=== PATIENT | male | born 2000 | race Caucasian/White ===

== ENCOUNTER 2021-07-01 02:34 | Emergency (ER) | payer OTHER ==
[~2021-07-01] VITALS: Ht 180.3 cm; Wt 78.4 kg
[2021-07-01] MEDS ORDERED: CEFU50TA PO (02:48)
[2021-07-01 09:09] VITALS: BP 142/69
== END 2021-07-01 09:12 | disposition home or self-care (01) ==
LOC: M ED 02:34
DX: K42.9 Umbilical hernia without obstruction or gangrene (principal); Z88.0 Allergy status to penicillin

== ENCOUNTER → 2021-09-12 | Outpatient (CLI) | payer OTHER ==
[~2021-09-12] MED LIST: CEFU50TA PO; IBUP200C25 PO; LEVOTAB10 PO
== END ==
LOC: M LABSMTC 09:50
PROVIDERS: ATTEND Anesthesiology
DX: Z01.812 Encounter for preprocedural laboratory examination (principal); Z20.822 Contact with and (suspected) exposure to COVID-19

== ENCOUNTER 2021-09-17 09:31 | Day surgery (SDC) | payer OTHER ==
[~2021-09-17] VITALS: Ht 177.8 cm; Wt 80.2 kg
[~2021-09-17 09:31] MED LIST changes: +ceFAZolin SOD 2 GM in IV 1 EA IV ONE
[2021-09-17] MEDS ORDERED: LR 1,000 ML IV SCH ×2 (10:10→11:55)
[2021-09-17] MEDS ORDERED: fentaNYL 100 MCG/2 ML INJECTION As Ordered ONE (10:12)
[2021-09-17] MEDS ORDERED: MIDAZOLAM INJ 2MG/2ML VIAL (J2250 PER 1MG) As Ordered ONE (10:12)
[2021-09-17] MEDS ORDERED: BUPIVACAINE/EPIN 0.25% 30 ML VIAL As Ordered ONE (10:42)
[2021-09-17] MEDS ORDERED: BUPIVACAINE LIPOSOME/PF 1.3% 20ML VIAL (13.3MG/ML)(EXPAREL) As Ordered ONE (10:42)
[2021-09-17] MEDS ORDERED: BUPIVACAINE HCL 0.25% 10ML VIAL As Ordered ONE (10:42)
[2021-09-17] MEDS ORDERED: ONDANSETRON 4MG 2ML VIAL As Ordered ONE (11:11)
[2021-09-17] MEDS ORDERED: dexameTHASONE 4 MG/ML 1ML VIAL (J1100 PER 1MG) As Ordered ONE (11:11)
[2021-09-17] MEDS ORDERED: LIDOCAINE 2% 100MG/5ML SDV (FOR ANES.) As Ordered ONE (11:12)
[2021-09-17] MEDS ORDERED: KETOROLAC 60MG 2ML VIAL As Ordered ONE (11:12)
[2021-09-17] MEDS ORDERED: ROCURONIUM BROMIDE 50 MG/5 ML VIAL As Ordered ONE (11:12)
[2021-09-17] MEDS ORDERED: propofoL 200 MG/20 ML VIAL As Ordered ONE (11:12)
[2021-09-17] MEDS ORDERED: ACETAMINOPHEN 1000MG 100ML IV BTL (OFIRMEV) (J0131 PER 10MG) As Ordered ONE (11:13)
[2021-09-17] MEDS ORDERED: SUGAMMADEX SODIUM 500 MG/5 ML VIAL (BRIDION) As Ordered ONE (11:25)
[2021-09-17] MEDS ORDERED: fentaNYL 100 MCG/2 ML INJECTION IV PRN (11:55)
[2021-09-17] MEDS ORDERED: oxyCODONE 5MG TAB PO PRN (11:55)
[2021-09-17] MEDS ORDERED: ONDANSETRON 4MG 2ML VIAL IV PRN (11:55)
[2021-09-17] MEDS ORDERED: traMADol 50 MG TAB PO PRN (13:10)
[2021-09-17 13:25] VITALS: BP 125/74
== END 2021-09-17 13:44 | disposition home or self-care (01) ==
LOC: M SDC 09:31
PROVIDERS: ATTEND Surgery
DX: K42.9 Umbilical hernia without obstruction or gangrene (principal); K21.9 Gastro-esophageal reflux disease without esophagitis; Z88.0 Allergy status to penicillin; F12.10 Cannabis abuse, uncomplicated; Z79.899 Other long term (current) drug therapy
CPT/HCPCS: 49585; 88302; C9290; J0131; J0690; J1100; J1885; J2250; J2405; J3010

== ENCOUNTER → 2022-11-26 | Outpatient (REF) | payer OTHER ==
[~2022-11-26] MED LIST changes: -ceFAZolin SOD 2 GM in IV 1 EA IV ONE
== END ==
LOC: M LAB REF 12:26
PROVIDERS: ATTEND Physician Assistant
DX: J02.9 Acute pharyngitis, unspecified (principal)

== ENCOUNTER → 2025-02-03 | Outpatient (CLI) | payer OTHER ==
[~2025-02-03] MED LIST changes: +E-Z-GAS II EFFERVESCENT PACKET (SODIUM BICARB./CITRIC ACID/SIMETHICONE) As Ordered ONE; +E-Z-HD 98% w/w 340 GM SUSP BTL As Ordered ONE; +E-Z-PAQUE 96% w/w SUSP 176 GM BTL As Ordered ONE
== END ==
LOC: M RAD 09:56
PROVIDERS: ATTEND Family Medicine
DX: K21.9 Gastro-esophageal reflux disease without esophagitis (principal)